=== PATIENT | female | born 1930 | race Caucasian/White ===

== ENCOUNTER → 2018-09-19 | Outpatient (REF) | payer MEDICARE ==
[2018-09-19 18:40] LABS: CREATININE FOR GFR 1.47 MG/DL (0.55-1.30); GLOMERULAR FILTRATION RATE 35.9 (>32)
== END ==
LOC: M LABDRAW1 17:24
PROVIDERS: ATTEND Physical Medicine & Rehabilitation
DX: M51.26 Other intervertebral disc displacement, lumbar region (principal)

== ENCOUNTER → 2020-07-04 | Outpatient (CLI) | payer MEDICARE | LOC: M LABSMTC 09:48 | PROVIDERS: ATTEND Physical Medicine & Rehabilitation | DX: Z20.828 Contact with and (suspected) exposure to other viral communicable diseases (principal) ==

== ENCOUNTER → 2020-07-06 | Outpatient (REF) ==
[2020-07-06 18:17] LABS: COLLAGEN EPINEPHRINE 139 SECONDS (74-162)
== END ==
LOC: M LAB REF 17:38
PROVIDERS: ATTEND Physical Medicine & Rehabilitation
DX: R79.1 Abnormal coagulation profile (principal)

== ENCOUNTER → 2020-09-08 | Outpatient (CLI) | payer MEDICARE | LOC: M LABSMTC 10:14 | PROVIDERS: ATTEND Physical Medicine & Rehabilitation | DX: Z20.822 Contact with and (suspected) exposure to COVID-19 (principal) ==

== ENCOUNTER → 2020-10-26 | Outpatient (CLI) | payer MEDICARE ==
--- NOTE | 2020-10-26 16:42 | REP ---
INDICATION: VENOUS INSUFFICIENCY, VARICOSE VEINS COMPARISON: None. TECHNIQUE: Real time compression and duplex Doppler interrogation of the bilateral lower extremity deep venous system is performed. FINDINGS: Bilaterally, the common femoral, superficial femoral and popliteal veins are fully compressible with transducer pressure and demonstrate normal spontaneous and phasic flow, without evidence of deep venous thrombosis. Evaluation for venous reflux is performed. On the right there is a small amount of reflux in the common femoral vein. There is an anterior accessory greater saphenous vein measuring 4 mm, with no reflux. There is no significant reflux in the superficial femoral or popliteal veins. Greater saphenous vein measures 6 mm at the saphenofemoral junction. Small amount of reflux is seen in the mid and distal greater saphenous vein only when standing, the mid greater saphenous vein measures 3 mm in the reflux as a duration of 5.4 seconds and the distal greater saphenous vein at the knee measures 3 mm with duration of reflux 0.75 seconds. Lesser saphenous vein measures 3 mm. There is no reflux with the bed tipped. On the left small volume of reflux is seen in the common femoral vein. There is no reflux in the superficial femoral or popliteal vein, nor in the lesser saphenous vein which measures 3 mm. There is no evidence of an anterior accessory greater saphenous vein. There is reflux at the saphenofemoral junction duration 1.1 seconds, AP diameter 4 mm. There is reflux in the mid greater saphenous vein duration 1.3 seconds in AP diameter 3 mm. There is reflux in the greater saphenous vein at the knee duration 5.1 seconds AP diameter 3 mm. IMPRESSION: No evidence of deep venous thrombosis of the bilateral lower extremity femoral popliteal venous system. Bilateral greater saphenous vein reflux as discussed above. <Electronically signed by Guerrero Segovia > 10/26/20 [id number]
== END ==
LOC: M RAD 12:27
PROVIDERS: ATTEND Surgery Vascular Surgery
DX: I87.2 Venous insufficiency (chronic) (peripheral) (principal); I83.813 Varicose veins of bilateral lower extremities with pain

== ENCOUNTER → 2020-11-19 | Outpatient (CLI) | payer MEDICARE ==
[~2020-11-19] MED LIST: ISOVUE-300 61% 50ML VIAL As Ordered ONE; LIDOCAINE 1% MDV 20ML VIAL As Ordered ONE; TRIAMCINOLONE ACETONIDE SUSP 40 MG/ML VIAL (J3301) As Ordered ONE
--- NOTE | 2020-11-19 14:16 | REP ---
INDICATION: LEFT SHOULDER INJECTION. COMPARISON: None TECHNIQUE: The procedure was performed by NICK Sandoval, under the direct supervision of Dr. Hirsch. The benefits and risks of the procedure were explained to the patient, and an informed consent was obtained. Directly prior to the start of the procedure, a formal time-out was completed in the procedure room. The left glenohumeral joint space was localized using fluoroscopic guidance. The skin was prepped and draped in a sterile fashion. Approximately 5 mL of 1% Lidocaine 10 mg/ml was used as a local anesthetic. Using fluoroscopic guidance, a #22 gauge spinal needle was inserted and advanced into the left glenohumeral joint space. Approximately 1 mL of Isovue 300 was injected to verify placement. Six mL of a solution containing 5 mL 1% lidocaine 10 mg/ml and 1 mL Kenalog 40 mg/mL was injected into the joint space. The needle was removed and hemostasis was achieved. FINDINGS: The patient tolerated the procedure well and there were no immediate complications. IMPRESSION: 1. Fluoroscopic guided intra-articular left glenohumeral joint injection. Less than 1 second of fluoroscopy time was utilized for this procedure. Some fluoroscopic images are performed with last image hold technology. These images require no additional radiation. <Electronically signed by Megan Morin > 11/19/20 1152 <Electronically signed by Oswaldo Hirsch > 11/19/20 1419
== END ==
LOC: M RADPRO 11:04
PROVIDERS: ATTEND Physician Assistant
DX: M19.012 Primary osteoarthritis, left shoulder (principal)
CPT/HCPCS: 20610; 77002; J3301; Q9967

== ENCOUNTER → 2020-11-26 | Outpatient (CLI) | payer MEDICARE ==
--- NOTE | 2020-12-01 10:32 | REP ---
INDICATION: RT SHOULDER OA W/ PAIN. COMPARISON: None. TECHNIQUE: The procedure was performed under the direct supervision of Dr. Segovia. The benefits and risks including but not limited to pain infection and bleeding and anaphylaxis were explained to the patient and informed consent was obtained. The right glenohumeral joint space was localized using fluoroscopic guidance. The skin was prepped and draped in a sterile fashion. 1% lidocaine was used as local anesthetic. Using fluoroscopic guidance a 25 gauge needle was inserted and advanced into the joint. 0.5 cc of Isovue-300 was injected to verify placement. 6 cc of a solution containing 5 cc of 1% lidocaine and 1 cc of Kenalog 40 mg was injected. Needle was then removed. The patient tolerated the procedure well and there were no immediate complications. Less than 6 seconds of fluoro time was utilized for this procedure. FINDINGS: None IMPRESSION: Fluoroscopic guidance for right shoulder injection. <Electronically signed by Vignesh Rodriguez > 11/29/20 [id number] <Electronically signed by Guerrero Segovia > 12/01/20 [id number]
== END ==
LOC: M RADPRO 10:27
PROVIDERS: ATTEND Physician Assistant
DX: M19.011 Primary osteoarthritis, right shoulder (principal); M25.511 Pain in right shoulder
CPT/HCPCS: 20610; 77002; J3301; Q9967

== ENCOUNTER → 2022-04-11 | Outpatient (CLI) | payer MEDICARE ==
[~2022-04-11] MED LIST changes: +ACET650T61 PO; +ADV250INH INH; +DULO1CAP4 PO; +GABA-283 PO; -ISOVUE-300 61% 50ML VIAL As Ordered ONE; -LIDOCAINE 1% MDV 20ML VIAL As Ordered ONE; +PANT40TA29 PO; +TOVI8TAB PO; -TRIAMCINOLONE ACETONIDE SUSP 40 MG/ML VIAL (J3301) As Ordered ONE; +VENTAER INH; +VITMTA PO
[2022-04-11 11:01] LABS: PLATELET COUNT, AUTOMATED 208 10^3/uL (150-450)
[2022-04-11 11:05] LABS: COLLAGEN EPINEPHRINE 212 SECONDS (74-162)
[2022-04-11 11:06] LABS: INR 0.95; PROTHROMBIN TIME 13.1 SECONDS (12.7-14.5)
[2022-04-11 11:07] LABS: PARTIAL THROMBOPLASTIN TIME 28.9 SECONDS (25.9-37.0)
[2022-04-11 11:27] LABS: COLLAGEN ADP 96 SECONDS (56-103)
== END ==
LOC: M LAB 10:17
PROVIDERS: ATTEND Physical Medicine & Rehabilitation
DX: M47.817 Spondylosis without myelopathy or radiculopathy, lumbosacral region (principal); Z79.01 Long term (current) use of anticoagulants